=== PATIENT | male | born 1940 | race Caucasian/White ===

== ENCOUNTER 2017-09-29 15:21 | Observation (INO) | payer MEDICARE, OTHER ==
[2017-09-29] MEDS ORDERED: Sodium Chloride 0.9% 5 ML Syringe FLUSH PRN (16:04)
--- NOTE | 2017-09-29 16:31 | EDM.PDOC ---
ED HPI GENERAL MEDICAL PROBLEM - General Chief Complaint: General Stated Complaint: dizziness Time Seen by Provider: 09/29/17 15:38 Source of Information: Reports: Patient History Limitations: Reports: No Limitations - History of Present Illness INITIAL COMMENTS - FREE TEXT/NARRATIVE: Patient is a 77-year-old gentleman who presents to the emergency department this afternoon with a complaint of dizziness. Patient states that he was making coffee in the kitchen, and suddenly became very dizzy and had to sit down on a chair. Symptoms improved but did not completely dissipate. Patient decided to proceed to the emergency department. Patient had one episode of vomiting while in transit, and one episode of vomiting upon arrival to the emergency department. Patient underwent coronary artery bypass grafting 4 years ago. Patient denies chest pain, shortness of breath, blurry vision, headache, fever, or head trauma. Onset: Today Onset Date: 09/29/17 Onset Time: 15:00 Duration: Hour(s): Location: Reports: Head Quality: Reports: Other (dizziness) Severity: Mild Improves with: Reports: Other (spontaneously) Associated Symptoms: Reports: Nausea/Vomiting. 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 - Related Data Allergies Allergy/AdvReac Type Severity Reaction Status Date / Time No Known Drug Allergies Allergy NKDA Verified 08/31/15 08:37 Home Meds: Home Meds Aspirin 325 mg PO DAILY 08/31/15 [History] Losartan Potassium 100 mg PO DAILY 08/31/15 [History] Metoprolol Tartrate [Lopressor] 0.5 tab PO BID 08/31/15 [History] Simvastatin [Zocor] 20 mg PO BEDTIME 08/31/15 [History] Tamsulosin HCl 0.4 mg PO DAILY 08/31/15 [History] glipiZIDE [Glucotrol] 10 mg PO BID 08/31/15 [History] metFORMIN [Glucophage] 1 tab PO ACBREAKFAST 08/31/15 [History] metFORMIN [Glucophage] 1,000 mg PO BEDTIME 08/31/15 [History] Social & Family History - Tobacco Use Smoking Status *Q: Never Smoker ED ROS GENERAL - Review of Systems Review Of Systems: ROS reveals no pertinent complaints other than HPI. Constitutional: Reports: No Symptoms HEENT: Reports: No Symptoms Respiratory: Reports: No Symptoms Cardiovascular: Reports: No Symptoms Endocrine: Reports: No Symptoms GI/Abdominal: Reports: No Symptoms : Reports: No Symptoms Musculoskeletal: Reports: No Symptoms Skin: Reports: No Symptoms Neurological: Reports: Dizziness. Denies: Headache Psychiatric: Reports: No Symptoms Hematologic/Lymphatic: Reports: No Symptoms Immunologic: Reports: No Symptoms ED EXAM, GENERAL - Physical Exam Exam: See Below Exam Limited By: No Limitations General Appearance: Alert, WD/WN, No Apparent Distress Eye Exam: Bilateral Eye: Normal Inspection Ears: Normal External Exam, Normal Canal, Normal TMs Nose: Normal Inspection, Normal Mucosa, No Blood Throat/Mouth: Normal Inspection, Normal Oropharynx, No Airway Compromise Head: Atraumatic, Normocephalic Neck: Normal Inspection, Supple, Lymphadenopathy (L), Lymphadenopathy (R). No: Carotid Bruit Respiratory/Chest: No Respiratory Distress, Lungs Clear, Normal Breath Sounds, No Accessory Muscle Use, Chest Non-Tender Cardiovascular: Bradycardia. No: Diastolic Murmur, Systolic Murmur GI/Abdominal: Normal Bowel Sounds, Soft, Non-Tender, No Organomegaly, No Distention, No Abnormal Bruit, No Mass Back Exam: Normal Inspection. No: CVA Tenderness (L), CVA Tenderness (R) Extremities: Normal Inspection, No Pedal Edema Neurological: Alert, Oriented, CN II-XII Intact, Normal Cognition, No Motor/ Sensory Deficits Psychiatric: Normal Affect, Normal Mood Skin Exam: Warm, Dry, Intact, Normal Color, No Rash, Cool EKG INTERPRETATION EKG Date: 09/29/17 Time: 16:15 Rhythm: Other (sinus bradycardia) Rate (Beats/Min): 53 QRS: LBBB ST-T: Normal Comparison: NA - No Prior EKG Course - Vital Signs Last Recorded V/S: Last Vital Signs Temp 96.7 F 09/29/17 15:54 Pulse 78 09/29/17 15:54 Resp 20 09/29/17 15:54 BP 185/93 H 09/29/17 15:54 Pulse Ox 97 09/29/17 15:54 - Orders/Labs/Meds Orders: Active Orders 24 hr Category Date Time Status EKG Documentation Completion [RC] ASDIRECTED Care 09/29/17 16:05 Ordered Peripheral IV Care [RC] . DIRECTED Care 09/29/17 16:05 Ordered Chest 1V Frontal [CR] Stat Exams 09/29/17 16:04 Ordered Head wo Cont [CT] Stat Exams 09/29/17 16:04 Ordered CBC WITH AUTO DIFF [HEME] Stat Lab 09/29/17 16:04 Ordered COMPREHENSIVE METABOLIC PN,CMP [CHEM] Stat Lab 09/29/17 16:04 Ordered INR,PT,PROTHROMBIN TIME [COAG] Stat Lab 09/29/17 16:04 Ordered MAGNESIUM [CHEM] Stat Lab 09/29/17 16:04 Ordered PTT,PARTIAL THROMBOPLSTIN TIME [COAG] Stat Lab 09/29/17 16:04 Ordered TROPONIN I [CHEM] Stat Lab 09/29/17 16:04 Ordered Sodium Chloride 0.9% [Syrex Flush] Med 09/29/17 16:04 Ordered 5 ml FLUSH Q8HR PRN Peripheral IV Insertion Adult [OM.PC] Urgent Oth 09/29/17 16:04 Ordered Saline Lock Insert [OM.PC] Stat Oth 09/29/17 16:04 Ordered EKG 12 Lead [EK] Stat Ther 09/29/17 16:04 Ordered Medication Orders Sodium Chloride (Syrex Flush) 5 ml FLUSH Q8HR PRN PRN Reason: Keep Vein Open Meds: Medications Generic Name Dose Route Start Last Admin Trade Name Freq PRN Reason Stop Dose Admin Sodium Chloride 5 ml 09/29/17 16:04 Syrex Flush FLUSH Q8HR PRN Keep Vein Open - Radiology Interpretation Free Text/Narrative:: Chest x-ray and CT head negative for acute process. - Re-Assessments/Exams Free Text/Narrative Re-Assessment/Exam: 09/29/17 17:43 Patient afebrile, nontoxic appearing. Vital signs stable. Denies chest pain and nausea has resolved. Discussed case with Dr. Watson and patient will be admitted for observation and serial cardiac enzymes. Departure - Departure Time of Disposition: 17:47 Disposition: Refer to Observation Condition: Fair Clinical Impression: Elevated troponin, Dizziness - Discharge Information Referrals: Rowena Li MD [Primary Care Provider] - - My Orders Last 24 Hours: My Active Orders 09/29/17 16:04 Chest 1V Frontal [CR] Stat Head wo Cont [CT] Stat CBC WITH AUTO DIFF [HEME] Stat COMPREHENSIVE METABOLIC PN,CMP [CHEM] Stat INR,PT,PROTHROMBIN TIME [COAG] Stat MAGNESIUM [CHEM] Stat PTT,PARTIAL THROMBOPLSTIN TIME [COAG] Stat TROPONIN I [CHEM] Stat Sodium Chloride 0.9% [Syrex Flush] 5 ml FLUSH Q8HR PRN Peripheral IV Insertion Adult [OM.PC] Urgent Saline Lock Insert [OM.PC] Stat EKG 12 Lead [EK] Stat 09/29/17 16:05 EKG Documentation Completion [RC] ASDIRECTED Peripheral IV Care [RC] . DIRECTED - Assessment/Plan Admission H&P: Please use this note as an admission H&P Last 24 Hours: My Active Orders 09/29/17 16:04 Chest 1V Frontal [CR] Stat Head wo Cont [CT] Stat CBC WITH AUTO DIFF [HEME] Stat COMPREHENSIVE METABOLIC PN,CMP [CHEM] Stat INR,PT,PROTHROMBIN TIME [COAG] Stat MAGNESIUM [CHEM] Stat PTT,PARTIAL THROMBOPLSTIN TIME [COAG] Stat TROPONIN I [CHEM] Stat Sodium Chloride 0.9% [Syrex Flush] 5 ml FLUSH Q8HR PRN Peripheral IV Insertion Adult [OM.PC] Urgent Saline Lock Insert [OM.PC] Stat EKG 12 Lead [EK] Stat 09/29/17 16:05 EKG Documentation Completion [RC] ASDIRECTED Peripheral IV Care [RC] . DIRECTED Assessment:: Elevated troponin dizziness Plan: Admit to observation
[2017-09-29 21:40] VITALS: BP 166/86
== END 2017-09-29 22:10 ==
LOC: KA.ED 15:21 → KA.MS 17:40 → UNDODISOB 22:10
PROVIDERS: ADMIT Physician Assistant Surgical; ATTEND Internal Medicine
DX: R79.89 Other specified abnormal findings of blood chemistry (principal); R42 Dizziness and giddiness; Z88.8 Allergy status to other drugs, medicaments and biological substances; Z79.82 Long term (current) use of aspirin; Z79.84 Long term (current) use of oral hypoglycemic drugs; Z79.899 Other long term (current) drug therapy
CPT/HCPCS: 36415; 70450; 71020; 80053; 83735; 84484; 85025; 85610; 85730; 93005; 99285; G0378

== ENCOUNTER 2023-01-16 20:44 | Emergency (ER) | payer OTHER, MEDICARE ==
[2023-01-16 21:45] VITALS: BP 154/69; PULSE 86
== END 2023-01-16 22:23 | disposition home or self-care (01) ==
LOC: KA.ED 20:44
DX: M48.02 Spinal stenosis, cervical region (principal); E11.9 Type 2 diabetes mellitus without complications; E78.00 Pure hypercholesterolemia, unspecified; I10 Essential (primary) hypertension; I25.2 Old myocardial infarction; R51.9 Headache, unspecified; Z95.1 Presence of aortocoronary bypass graft; Z88.8 Allergy status to other drugs, medicaments and biological substances; Z79.899 Other long term (current) drug therapy; Z79.02 Long term (current) use of antithrombotics/antiplatelets; Z79.82 Long term (current) use of aspirin; W01.0XXA Fall on same level from slipping, tripping and stumbling without subsequent striking against object, initial encounter
CPT/HCPCS: 70450; 72125; 99283; 99284

== ENCOUNTER 2024-03-19 18:50 | Emergency (ER) | payer MEDICARE, OTHER ==
[2024-03-19 19:05] VITALS: BP 139/64; PULSE 96
[2024-03-19] MEDS: Tetracaine HCl/PF 0.5% 4 ML Bottle EYELF ONE (19:10)
== END 2024-03-19 20:00 | disposition home or self-care (01) ==
LOC: KA.ED 18:50
DX: T15.02XA Foreign body in cornea, left eye, initial encounter (principal); I10 Essential (primary) hypertension; I25.10 Atherosclerotic heart disease of native coronary artery without angina pectoris; E78.00 Pure hypercholesterolemia, unspecified; K21.9 Gastro-esophageal reflux disease without esophagitis; E11.9 Type 2 diabetes mellitus without complications; Z88.8 Allergy status to other drugs, medicaments and biological substances; Z79.84 Long term (current) use of oral hypoglycemic drugs; Z79.82 Long term (current) use of aspirin; Z79.899 Other long term (current) drug therapy; Z79.02 Long term (current) use of antithrombotics/antiplatelets; I25.2 Old myocardial infarction; Z95.1 Presence of aortocoronary bypass graft; W44.8XXA Other foreign body entering into or through a natural orifice, initial encounter
CPT/HCPCS: 65220; 99283-25